=== PATIENT | female | born 1940 | race Caucasian/White ===

== ENCOUNTER 2021-02-08 00:10 | Emergency (ER) | payer OTHER, SELFPAY ==
[2021-02-08 01:18] VITALS: BP 190/66; PULSE 58; RESP 18; TEMP 36.4; O2SAT 98; BMI 21.5
--- NOTE | 2021-02-08 04:28 | ED.WOUNDLAC ---
HPI - Wound/Laceration General Chief Complaint: Wound/Laceration Stated Complaint: fall/small eyebrow lac Time Seen by Provider: 02/08/21 04:28 Source: patient, family (Granddaughter) and it operations analyst Mode of arrival: ambulatory History of Present Illness HPI narrative: 80-year-old female with baseline dementia brought in by her granddaughter after the granddaughter states that the patient was playing with a grand children and slipped striking her head against the edge of the wall and denies any use of blood thinners and did not lose consciousness. Patient herself denies any recent fever, chills, urinary pain/burning/frequency and denies feeling dizzy or having heart palpitations prior to the incident. Related Data Allergies Allergy/AdvReac Type Severity Reaction Status Date / Time No Known Allergies Allergy Verified 02/08/21 01:26 Review of Systems Review of Systems: Pertinent positives and negatives as stated in HPI 10 point review of systems is otherwise negative. PMFSH Past Medical History Source: nursing notes reviewed Social History Social History Advance Directives: No Physical Exam Vital Signs: Vital Signs: Last Vital Signs Temp 97.5 F 02/08/21 01:18 Pulse 58 02/08/21 01:18 Resp 18 02/08/21 01:18 BP 190/66 H 02/08/21 01:18 Pulse Ox 98 02/08/21 01:18 Body Mass Index 21.5 VITAL SIGNS: Reviewed. GENERAL: Well developed, well nourished, in no acute distress. HEAD: Normocephalic/1.5 cm laceration at left eyebrow EYES: PERRLA, EOMI OROPHARYNX: no oral lesions noted, posterior pharynx clear LUNGS: Normal breath sounds. No adventitious sounds or accessory muscle use. SpO2<98> CARDIOVASCULAR: Regular rate and rhythm without noted murmurs ABDOMEN: Soft, non-tender, non-distended with bowel sounds. SKIN: Inspection of the skin reveals no rashes, small laceration 1.5 cm at left eyebrow, hemostatic NEUROLOGIC: Alert and oriented x 4. Strength and sensation to light touch were grossly intact x 4, nonfocal. Course Course Course Narrative: 80-year-old female with history and clinical presentation consistent with mechanical fall without LOC and small hemostatic laceration to left eyebrow that was repaired primarily with the Dermabond. Patient was then discharged home in stable condition. Procedures Laceration Laceration 1: Site: other (Eyebrow) Side (If applicable): left Size (cm): 1.5 Description: linear Depth: simple, single layer Pre-repair: wound explored, irrigated extensively and deep structures intact Skin layer closed with: other (Dermabond) Size (cm): other Discharge Plan Discharge Clinical Impression: Laceration Patient Disposition: Home, Self-Care Instructions: Facial Laceration (ED), Skin Adhesive Care (ED) Additional Instructions: 1. Reanude todos los medicamentos caseros seg?n lo prescrito. 2. Recomiende Tylenol de venta stephen seg?n sea necesario para controlar el dolor. 3. Evite la exposici?n al agua [place] 24 horas para permitir que el adhesivo para la piel se cure por completo. 4. Yanick un seguimiento con el proveedor de atenci?n primaria en los pr?ximos 2-3 d?as para jarad reevaluaci?n. Regrese a la pili de emergencias por un empeoramiento leesa de los s?ntomas. Referrals: Physician,Unknown [Primary Care Provider] - 2 days Print Language: [place]
== END 2021-02-08 04:49 | disposition home or self-care (01) ==
PROVIDERS: Emergency Provider Student in an Organized Health Care Education/Training Program
DX: S01.112A Laceration without foreign body of left eyelid and periocular area, initial encounter (principal); W22.09XA Striking against other stationary object, initial encounter; Y93.83 Activity, rough housing and horseplay; Y92.9 Unspecified place or not applicable; Y99.9 Unspecified external cause status
CPT/HCPCS: 12011; 99283; 99284